=== PATIENT | female | born 1960 | race Caucasian/White ===

== ENCOUNTER → 2019-04-29 | Outpatient (CLI) | payer OTHER ==
--- NOTE | 2019-04-29 12:37 | PCVCIMAG ---
APPROVED REPORT Study performed: 04/29/2019 09:18:38 EXAM: Comprehensive 2D, Doppler, and color-flow Echocardiogram Patient Location: Echo lab Room #: 3Status: routine BSA: 1.71 HR: 56 bpm Rhythm: NSR Other Information Study Quality: Good Risk Factors: Cardiac Risk Factors: Hyperlipidemia Indications Chest Pressure Palpitations Lightheadedness 2D Dimensions IVSd: 7.54 (7-11mm)LVOT Diam: 20.00 (18-24mm) LVDd: 45.33 mm PWd: 8.52 (7-11mm)Ascending Ao: 28.70 (22-36mm) LVDs: 28.69 (25-40mm) Left Atrium: 34.93 (27-40mm) Aortic Root: 27.22 mm LV Single Plane 4CH: 60.21 % LV Single Plane 2CH: 65.61 % Biplane EF: 63.6 % Volumes Left Atrial Volume (Systole) Single Plane 4CH: 42.09 mLSingle Plane 2CH: 35.34 mL LA ESV Index: 23.00 mL/m2 Aortic Valve AoV Peak Romel.: 1.18 m/s AO Peak Gr.: 5.52 mmHgLVOT Max P.23 mmHg LVOT Max V: 0.90 m/s ERIBERTO Vmax: 2.32 cm2 Mitral Valve E/A Ratio: 1.5 MV Decel. Time: 175.42 ms MV E Max Romel.: 0.86 m/s MV A Romel.: 0.57 m/s IVRT: 89.97 ms TDI E/Lateral E': 8.60E/Medial E': 10.75 Medial E' Romel.: 0.08 m/s Lateral E' Romel.: 0.10 m/s Pulmonary Valve PV Peak Romel.: 0.76 m/sPV Peak Gr.: 2.30 mmHg Pulmonary Vein P Vein S: 0.39 m/sP Vein A: 0.27 m/s P Vein D: 0.60 m/sP Vein A Dur.: 131.5 msec P Vein S/D Ratio: 0.65 Tricuspid Valve TR Peak Romel.: 2.10 m/sRAP Estimate: 7.00 mmHg TR Peak Gr.: 17.56 mmHg PA Pressure: 25.00 mmHg Left Ventricle The left ventricle is normal size. There is normal LV segmental wall motion. There is normal left ventricular wall thickness. Left ventricular systolic function is normal. The left ventricular ejection fraction is within the normal range. LVEF is 60-65%. The left ventricular diastolic function is normal. Right Ventricle The right ventricle is normal size. The right ventricular systolic function is normal. Atria The left atrium size is normal. The right atrium size is normal. Aortic Valve The aortic valve is normal in structure. No aortic regurgitation is present. There is no aortic valvular stenosis. Mitral Valve The mitral valve is normal in structure. Trace mitral regurgitation. No evidence of mitral valve stenosis. Tricuspid Valve The tricuspid valve is normal in structure. Mild tricuspid regurgitation. Pulmonary artery pressure is 25 mmHg. Pulmonic Valve The pulmonary valve is normal in structure. Trace pulmonic regurgitation. Great Vessels The aortic root is normal in size. IVC is normal in size and collapses >50% with inspiration. Pericardium There is no pericardial effusion. <Conclusion> The left ventricle is normal size. LVEF is 60-65%. The aortic valve is normal in structure. The mitral valve is normal in structure. Trace mitral regurgitation. The tricuspid valve is normal in structure. Mild tricuspid regurgitation. Pulmonary artery pressure is 25 mmHg. The pulmonary valve is normal in structure. Trace pulmonic regurgitation. There is no pericardial effusion.
--- NOTE | 2019-04-29 13:47 | PCVCIMAG ---
APPROVED REPORT Imaging Protocol: Rest Tc-99m/Stress Tc-99m 1 day Study performed: 04/29/2019 10:22:01 Indication: Chest pain, Lightheaded, Fatigue Patient Location: Out-Patient Stress Nurse: Yoselin Padilla RN [place] [employer]:Meir Omalley NMLAVELLE Ht: 5 ft 7 in Wt: 135 lbs BSA: 1.71 m2 HR: 75 bpm BP: 127/73 mmHg BMI: 21.1 Rhythm: Sinus Rhythm, Incomplete RBBB Medical History Medical History: Age, Hyperlipidemia Medications: No medications Allergies: No known drug allergies Pretest Chest Pain Characteristics: No chest pain Exercise History: Physically active Resting Data Rest SPECT myocardial perfusion imaging was performed in supine position 45 minutes following the intravenous injection of 10 mCi of Tc-99m Sestamibi. Time of rest injection: 1030 Date: 04/29/2019 Administration Route: IV Administration Site: Right AC Pharmacologic Stress Pharmacologic stress test was performed by injecting Regadenoson 0.4 mg IV push over 10-15 seconds immediately followed by the intravenous injection of 30.3 mCi of Tc-99m Sestamibi. Time of stress injection: 1145 Date: 04/29/2019 Administration Route: IV Administration Site: Right AC Gated Stress SPECT was performed 45 minutes after stress injection. The images were gated to evaluate regional wall motion and calculate left ventricular ejection fraction. Stress Test Details Stress Test: Exercise stress testing was performed using a Albert protocol. HRMax Heart Rate (APMHR): 162 bpm Resting HR: 75 bpmTarget HR (85% APMHR): 137 bpm Max HR Achieved: 153 bpm % of APMHR: 94 Recovery HR: 81 bpm HR response to stress: Normal HR response to stress BP Resting BP: 127/73 mmHg Max BP: 166/69 mmHg Recovery BP: 132/58 mmHg BP response to stress: Normal blood pressure response to stress. ECG Resting ECG: Sinus Rhythm, Incomplete RBBB Stress ECG: Sinus Tachycardia, Incomplete RBBB Maximum ST Deviation: 0 mm Arrhythmia: PVC's Recovery ECG: Sinus Rhythm, Incomplete RBBB Recovery ST Deviation: 0 mm Clinical Reason for Termination: Maximal effort, Fatigue, Dyspnea Stress Symptoms: Dyspnea, Leg Fatigue Exercise duration: 10 min sec Exercise capacity: 13.40 METs Overall Exercise Capacity for Age: Good Angina Score: None Symptoms resolved during recovery. Stress ECG Conclusion 1. Subjectively negative for ischemia 2. Elective cardiographic C negative for ischemia 3. Satisfactory functional capacity Oleary Treadmill Score is 10.0 which is Low risk. Study Data Post stress, the left ventricular ejection was 79%.. SSS: 1 SRS: 2 SDS: 0 TID = 0.92. Perfusion There is a medium area of moderately reduced uptake in the mid and apical segment of the anterior wall which is seen on the stress images as well as the resting images. This area thickens and moves normallythickens and moves normally and is most consistent with attenuation artifact. Wall Motion Normal left ventricular wall motion. Nuclear Conclusion ECG Findings: negative for ischemia Clinical Findings: negative for ischemia Nuclear Findings: negative for ischemia Exercise Capacity: normal Left Ventricular Function: normal 1. Low risk study 2. Post stress left ventricular ejection fraction 79% without wall motion abnormalities Interpreted by: Verenice Frederick MD Electronically Approved: 04/29/2019 13:46:40 <Conclusion> 1. Subjectively negative for ischemia 2. Elective cardiographic C negative for ischemia 3. Satisfactory functional capacity
== END | disposition home or self-care (01) ==
LOC: PCVCIMAG 09:13
PROVIDERS: ATTEND Internal Medicine
DX: I07.1 Rheumatic tricuspid insufficiency (principal); R07.89 Other chest pain; R00.2 Palpitations; R42 Dizziness and giddiness; R53.83 Other fatigue
CPT/HCPCS: 78452; 93017; 93306; A9500